=== PATIENT | female | born 1945 | race Caucasian/White ===

== ENCOUNTER 2017-04-17 12:05 | Emergency (ER) | payer MEDICARE ==
[~2017-04-17] VITALS: Ht 160 cm; Wt 62.8 kg
[~2017-04-17 12:05] MED LIST: AMOX500T2 PO; BABY81CH CHEW; CARV3.125 PO; DOXY100T18 PO; FURO1TAB93 PO; GLUCTAB PO; LISI-357 PO; NEBUMIS6 INH
[2017-04-17 12:09] VITALS: BP 174/80; PULSE 64; RESP 16; TEMP 98.1; O2SAT 93
--- NOTE | 2017-04-17 12:51 | PD ---
HPI Chief Complaint: Complaint Time Seen by Provider: 12:33 Travel History International Travel<30 days: No Contact w/Intl Traveler<30days: No Traveled to known affect area: No History of Present Illness HPI 71-year-old female presents to emergency department with lower pelvic pressure for 3 days. Says she feels urgency and frequency after urination. Patient states that this same sensation she has when she has a urinary tract infection. Denies fever or chills. No nausea, vomiting or diarrhea. Denies back pain, hematuria, or dysuria. . PFSH Past Medical History Hx Anticoagulant Therapy: Yes (asa 81mg) Arthritis: Yes Asthma: No Autoimmune Disease: No Anxiety: No Depression: No Heart Rhythm Problems: No Cancer: No Cardiovascular Problems: Yes (htn on meds) High Cholesterol: No Chest Pain: No Congestive Heart Failure: Yes COPD: Yes (denies) Cerebrovascular Accident: No Diabetes: Yes (type 2) Patient Takes Glucophage: No Diminished Hearing: No Endocrine: No Gastrointestinal Disorders: Yes GERD: Yes (denies) Genitourinary: Yes Hiatal Hernia: No Hypertension: Yes Immune Disorder: No Kidney Stones: No Musculoskeletal: No Neurologic: No Psychiatric: No Respiratory: Yes (chf, copd ?) Migraines: No Renal Failure: No Seizures: No Sleep Apnea: No Thyroid Disease: No Ulcer: No Influenza Vaccination: Yes ?: Not Tubal Ligation: Yes Past Surgical History Abdominal Surgery: Yes Arteriovenous Shunt: No Cardiac Surgery: No Cholecystectomy: Yes Ear Surgery: No Endocrine Surgery: No Eye Surgery: No Genitourinary Surgery: No Gynecologic Surgery: Yes (PARTIAL HYSTERO) Hysterectomy: Yes (PARTIAL) Insulin Pump: No Oral Surgery: No Thoracic Surgery: No Tonsillectomy: Yes Other Surgery: Yes Social History Alcohol Use: No Tobacco Use: No (QUIT 20 YEARS AGO) Substance Use: No Allergies-Medications (Allergen,Severity, Reaction): Coded Allergies: cephalexin (Unverified Allergy, Severe, HIVES, SOB, 04/17/17) fexofenadine (Unverified Allergy, Severe, Shortness of Breath, 04/17/17) levofloxacin (Unverified Allergy, Severe, HIVES, 04/17/17) HIVES AND HEART RACING Sulfa (Sulfonamide Antibiotics) (Unverified Allergy, Intermediate, HIVES, 04/17/17) ALL OVER FACE ciprofloxacin (Unverified Allergy, Intermediate, ACID REFLUX, 04/17/17) moxifloxacin (Unverified Allergy, Intermediate, HIVES, 04/17/17) ALL OVER FACE azithromycin (Unverified Allergy, Unknown, UNKNOWN REACTION, 04/17/17) guaifenesin (Unverified Allergy, Unknown, UNKNOWN REACTION, 04/17/17) Uncoded Allergies: CEFPODOXIME/VANTIN (Allergy, Severe, HIVES/SOB, 04/17/17) . Reported Meds & Prescriptions Reported Meds & Active Scripts Active Macrobid (Nitrofurantoin Monoh/Nitrofur Macro) 100 Mg Cap 100 Mg PO BID 5 Days Review of Systems Except as stated in HPI: all other systems reviewed are Neg Physical Exam Narrative GENERAL: WD WN in NAD SKIN: Warm and dry. HEAD: Normocephalic. EYES: No scleral icterus. No injection or drainage. NECK: Supple, trachea midline. No JVD or lymphadenopathy. CARDIOVASCULAR: Regular rate and rhythm without murmurs, gallops, or rubs. RESPIRATORY: Breath sounds equal bilaterally. No accessory muscle use. GASTROINTESTINAL: Abdomen soft, non-tender, nondistended. Mild TTP to suprapubic area MUSCULOSKELETAL: No cyanosis, or edema. BACK: Nontender without obvious deformity. No CVA tenderness. Data Data Last Documented VS Vital Signs Date Time Temp Pulse Resp B/P (MAP) Pulse Ox O2 Delivery O2 Flow Rate FiO2 04/17/17 12:09 98.1 64 16 174/80 (111) 93 Orders Orders Urinalysis - C+S If Indicated (04/17/17 12:08) Urine Culture (04/17/17 12:45) Labs Laboratory Tests Test 04/17/17 12:45 Urine Color YELLOW Urine Turbidity CLOUDY Urine pH 7.0 Urine Specific [place] 1.007 Urine Protein NEG mg/dL Urine Glucose (UA) NEG mg/dL Urine Ketones NEG mg/dL Urine Occult Blood SMALL Urine Nitrite NEG Urine Bilirubin NEG Urine Leukocyte Esterase LARGE Urine RBC 4-9 /hpf Urine WBC 100-200 /hpf Urine Squamous Epithelial Cells 0-5 /hpf Urine Bacteria FEW /hpf Microscopic Urinalysis Comment CULTURE INDICATED MDM Medical Decision Making Medical Screen Exam Complete: Yes Emergency Medical Condition: Yes Differential Diagnosis UTI, cystitis, pyelonephritis Narrative Course 71-year-old female presents to emergency department with lower pelvic pressure for 3 days. Says she feels urgency and frequency after urination. Patient states that this same sensation she has when she has a urinary tract infection. Denies fever or chills. No nausea, vomiting or diarrhea. Denies back pain, hematuria, or dysuria. Denies medical issues or medication use. US consistent with UTI without complications. Pt will be discharged with macrobid. Encouraged adequate fluid intake, nutritious diet. Pt to follow up with her PCP for further eval. Return to the ED for worsening or persistent symptoms. Diagnosis Primary Impression: UTI (urinary tract infection) Qualified Codes: N30.00 - Acute cystitis without hematuria Referrals: Primary Care Physician Additional Instructions: Follow up with your primary care physician within 2-3 days. If your symptoms persist or worsen, return to the emergency department. Take medication as prescribed Injury have adequate fluid intake with nutritious diet. Scripts Nitrofurantoin Monohydrate Macrocrystals (Macrobid) 100 Mg Cap 100 MG PO BID for Infection for 5 Days, #10 CAP 0 Refills Prov: Zoe Miller 04/17/17 Disposition: 01 DISCHARGE HOME Condition: Stable Zoe Miller Apr 17, 2017 12:51
[2017-04-17 12:52] LABS: BILIRUBIN, URINE NEG (NEG); BLOOD, URINE SMALL (NEG); GLUCOSE,URINE NEG (NEG); KETONE, URINE NEG (NEG); NITRITE,URINE NEG (NEG); URINE LEUKOCYTE ESTERASE LARGE (NEG)
[2017-04-17 12:53] LABS: URINE COLOR YELLOW (YELLW/STRAW)
[2017-04-17 12:57] LABS: BACTERIA, URINE FEW /hpf; SQUAMOUS EPITHELIAL CELL URINE 0-5 /hpf (0-5); WBC, URINE 100-200 /hpf (0-5)
[2017-04-17] MEDS ORDERED: MACR100C2 PO (13:02)
== END 2017-04-17 13:11 | disposition home or self-care (01) ==
LOC: PHEFT 12:05
DX: N39.0 Urinary tract infection, site not specified (principal); A49.01 Methicillin susceptible Staphylococcus aureus infection, unspecified site; M19.90 Unspecified osteoarthritis, unspecified site; I11.0 Hypertensive heart disease with heart failure; I50.9 Heart failure, unspecified; J44.9 Chronic obstructive pulmonary disease, unspecified; E11.9 Type 2 diabetes mellitus without complications; K21.9 Gastro-esophageal reflux disease without esophagitis; Z88.2 Allergy status to sulfonamides
CPT/HCPCS: 81001; 86403; 87077; 87086; 87186; 99283